=== PATIENT | male | born 1950 | race Caucasian/White ===

== ENCOUNTER 2022-05-12 10:39 | Inpatient (IN) | payer MEDICARE, MEDICAID ==
[~2022-05-12] VITALS: Ht 167.6 cm; Wt 107.5 kg
[2022-05-12] MEDS ORDERED: ATOR10TA84 PO (11:01)
[2022-05-12 12:47] LABS: BASOPHILS % (AUTO) 0.4 % (0.0-2.0); EOSINOPHILS % (AUTO) 1.5 % (1.0-6.0); HEMATOCRIT 36.7 % (41-53); HEMOGLOBIN 12.7 g/dL (13.5-17.5); LYMPHOCYTES # (AUTO) 1.3 K/uL (1.0-4.8); LYMPHOCYTES % (AUTO) 19.7 % (22.0-44.0); MEAN CORPUSCULAR HEMOGLOBIN 31.1 pg (26.0-34.0); MEAN CORPUSCULAR HGB CONC 34.7 G/dL (31.0-37.0); MEAN CORPUSCULAR VOLUME 90 fL (80-100); MONOCYTES # (AUTO) 0.9 K/uL (0.1-1.0); MONOCYTES % (AUTO) 12.9 % (2.0-9.0); NEUTROPHILS # (AUTO) 4.3 K/uL (1.8-7.7); NEUTROPHILS % (AUTO) 65.5 % (40.0-70.0); PLATELET COUNT (AUTO) 147 K/uL (150-450); RED BLOOD CELL COUNT(AUTO) 4.09 MIL/uL (4.50-5.90); RED CELL DISTRIBUTION WIDTH 13.8 % (11.5-14.5)
[2022-05-12 12:56] LABS: COVID AG,FIA SOURCE NASAL SWAB
[2022-05-12 12:58] LABS: ANION GAP 10 mmol/L (8-16); CALCIUM, TOTAL 8.6 mg/dL (8.8-10.5); CARBON DIOXIDE 26 mmol/L (22-29); CHLORIDE 99 mmol/L (98-107); CREATININE 0.96 mg/dL (0.60-1.30); GLUCOSE,RANDOM 109 mg/dL (70-110); POTASSIUM 3.5 mmol/L (3.5-5.1); SODIUM SERUM 135 mmol/L (136-145); UREA NITROGEN, BLOOD 13 mg/dL (7-18)
[2022-05-12 13:02] LABS: GLOMERULAR FILTR. RATE CALC > 60 mL/min (>60)
[2022-05-12 13:04] LABS: ALANINE AMINOTRANSFERASE 15 U/L (12-78); ALKALINE PHOSPHATASE 59 U/L (46-116); ASPARTATE AMINOTRANSFERASE 16 U/L (15-37); BILIRUBIN,TOTAL 0.9 mg/dL (0.1-1.0); C-REACTIVE PROTEIN QUANT 12.06 mg/dL (0.00-0.30)
[2022-05-12 13:28] LABS: ERYTHROCYTE SEDIMENTATION RATE 51 MM/HR (0-15)
[2022-05-12] MEDS ORDERED: VANCOMYCIN 1GM/WATER(PEG/NADA) 200 ML IV ONE (14:15)
[2022-05-12] MEDS ORDERED: FOLI0.4T14 PO (14:18)
[2022-05-12] MEDS ORDERED: ATOR20TA65 PO (14:18)
[2022-05-12] MEDS ORDERED: METO25 PO (14:18)
[2022-05-12] MEDS ORDERED: HYDR12.54 PO (14:18)
[2022-05-12] MEDS ORDERED: APIX5TAB PO (14:18)
[2022-05-12] MEDS ORDERED: FINA5TAB41 PO (14:18)
[2022-05-12] MEDS ORDERED: IBUP-2070 PO (14:18)
[2022-05-12] MEDS ORDERED: TERA10CA4 PO (14:18)
[2022-05-12] MEDS ORDERED: CLOB15CR41 TP (14:18)
[2022-05-12] MEDS ORDERED: BISACODYL 10 MG RECTAL RECTAL SUPPOSITORY PR PRN (18:00)
[2022-05-12] MEDS ORDERED: ALBUTEROL SULFATE 2.5 MG/0.5 ML NEB SOLUTION NEB PRN (18:00)
[2022-05-12] MEDS ORDERED: ONDANSETRON HCL 4 MG/2 ML VIAL IVP PRN (18:00)
[2022-05-12] MEDS ORDERED: IPRATROPIUM BROMIDE 0.5 MG/2.5 ML NEB SOLUTION NEB PRN (18:00)
[2022-05-12] MEDS: CefTRIAXone 1 GM/DEXTROSE 50 ML IV SCH (18:23)
[2022-05-12] MEDS: ACETAMINOPHEN 325 MG TABLET PO PRN (19:00)
[2022-05-12] MEDS: APIXABAN 5 MG TABLET PO SCH (21:19)
[2022-05-12] MEDS: METOPROLOL TARTRATE 25 MG TABLET PO SCH (21:19)
[2022-05-12] MEDS: ATORVASTATIN CALCIUM 20 MG TABLET PO SCH (21:20)
[2022-05-12] MEDS ORDERED: VANCOMYCIN HCL 500 MG in DEXTROSE 5%-WATER 100 ML IV ONE (22:00)
[2022-05-12 22:36] VITALS: BP 137/73
[2022-05-13 00:35] VITALS: BP 99/65
[2022-05-13 03:55] VITALS: BP 130/59
[2022-05-13] MEDS: ACETAMINOPHEN 325 MG TABLET PO PRN ×3 (03:59→18:11)
[2022-05-13 07:21] LABS: BASOPHILS % (AUTO) 0.7 % (0.0-2.0); EOSINOPHILS % (AUTO) 3.3 % (1.0-6.0); HEMATOCRIT 35.2 % (41-53); HEMOGLOBIN 12.3 g/dL (13.5-17.5); LYMPHOCYTES % (AUTO) 17.7 % (22.0-44.0); MEAN CORPUSCULAR HEMOGLOBIN 31.1 pg (26.0-34.0); MEAN CORPUSCULAR HGB CONC 34.9 G/dL (31.0-37.0); MEAN CORPUSCULAR VOLUME 89 fL (80-100); MONOCYTES # (AUTO) 0.6 K/uL (0.1-1.0); MONOCYTES % (AUTO) 11.8 % (2.0-9.0); NEUTROPHILS # (AUTO) 3.6 K/uL (1.8-7.7); NEUTROPHILS % (AUTO) 66.5 % (40.0-70.0); PLATELET COUNT (AUTO) 172 K/uL (150-450); RED BLOOD CELL COUNT(AUTO) 3.96 MIL/uL (4.50-5.90); RED CELL DISTRIBUTION WIDTH 13.9 % (11.5-14.5)
[2022-05-13 07:39] LABS: ALANINE AMINOTRANSFERASE 14 U/L (12-78); ALBUMIN 2.7 g/dL (3.4-5.0); ALKALINE PHOSPHATASE 56 U/L (46-116); ANION GAP 12 mmol/L (8-16); ASPARTATE AMINOTRANSFERASE 16 U/L (15-37); BILIRUBIN,TOTAL 0.7 mg/dL (0.1-1.0); CALCIUM, TOTAL 8.4 mg/dL (8.8-10.5); CARBON DIOXIDE 28 mmol/L (22-29); CHLORIDE 99 mmol/L (98-107); CREATININE 0.89 mg/dL (0.60-1.30); GLUCOSE,RANDOM 109 mg/dL (70-110); POTASSIUM 3.7 mmol/L (3.5-5.1); SODIUM SERUM 139 mmol/L (136-145); TOTAL PROTEIN, SERUM 6.4 g/dL (6.4-8.2); UREA NITROGEN, BLOOD 14 mg/dL (7-18)
[2022-05-13 07:42] VITALS: BP 132/77
[2022-05-13 07:43] LABS: GLOMERULAR FILTR. RATE CALC > 60 mL/min (>60)
[2022-05-13] MEDS: APIXABAN 5 MG TABLET PO SCH ×2 (08:56→20:15)
[2022-05-13] MEDS: METOPROLOL TARTRATE 25 MG TABLET PO SCH ×2 (08:56→20:15)
[2022-05-13] MEDS: FOLIC ACID 0.4 MG TABLET PO SCH (08:56)
[2022-05-13] MEDS: FINASTERIDE 5 MG TABLET PO SCH (08:56)
[2022-05-13] MEDS: VANCOMYCIN HCL 1.25 GM in DEXTROSE 5%-WATER 250 ML IV SCH ×2 (08:57→20:15)
[2022-05-13 10:55] VITALS: BP 114/75
[2022-05-13] MEDS: SILVER SULFADIAZINE 1% 25 GM CREAM TP SCH (14:13)
[2022-05-13] MEDS: NYSTATIN 30 GM CREAM TP SCH (14:13)
[2022-05-13 14:38] VITALS: BP 122/76
[2022-05-13] MEDS ORDERED: SODIUM CHLORIDE 0.9% 500 ML IV ONE (17:59)
[2022-05-13] MEDS: CefTRIAXone 1 GM/DEXTROSE 50 ML IV SCH (18:00)
[2022-05-13] MEDS: ATORVASTATIN CALCIUM 20 MG TABLET PO SCH (20:15)
[2022-05-13 20:37] VITALS: BP 133/76
[2022-05-14 00:11] VITALS: BP 124/72
[2022-05-14 04:47] VITALS: BP 129/74
[2022-05-14 06:11] LABS: ANION GAP 4 mmol/L (8-16); CARBON DIOXIDE 32 mmol/L (22-29); CHLORIDE 102 mmol/L (98-107); CREATININE 0.82 mg/dL (0.60-1.30); GLUCOSE,RANDOM 147 mg/dL (70-110); SODIUM SERUM 138 mmol/L (136-145); UREA NITROGEN, BLOOD 11 mg/dL (7-18)
[2022-05-14 06:19] LABS: GLOMERULAR FILTR. RATE CALC > 60 mL/min (>60)
[2022-05-14 06:37] LABS: VANCOMYCIN,RANDOM 12.6 mcg/mL (25.0-50.0)
[2022-05-14 07:17] VITALS: BP 125/73
[2022-05-14] MEDS: FINASTERIDE 5 MG TABLET PO SCH (08:30)
[2022-05-14] MEDS: METOPROLOL TARTRATE 25 MG TABLET PO SCH ×2 (08:30→20:56)
[2022-05-14] MEDS: SILVER SULFADIAZINE 1% 25 GM CREAM TP SCH (08:30)
[2022-05-14] MEDS: APIXABAN 5 MG TABLET PO SCH ×2 (08:30→20:56)
[2022-05-14] MEDS: NYSTATIN 30 GM CREAM TP SCH (08:30)
[2022-05-14] MEDS: FOLIC ACID 0.4 MG TABLET PO SCH (08:30)
[2022-05-14] MEDS: VANCOMYCIN HCL 1.25 GM in DEXTROSE 5%-WATER 250 ML IV SCH (08:34)
[2022-05-14 10:56] VITALS: BP 123/82
[2022-05-14] MEDS: ACETAMINOPHEN 325 MG TABLET PO PRN ×2 (12:16→16:30)
[2022-05-14] MEDS: PIPERACILLIN/TAZO 3.375 GM/D5W 50 ML IV SCH ×2 (15:25→20:56)
[2022-05-14 16:05] VITALS: BP 117/66
[2022-05-14] MEDS: VANCOMYCIN 1GM/WATER(PEG/NADA) 200 ML IV SCH (16:30)
[2022-05-14 20:04] VITALS: BP 127/84
[2022-05-14] MEDS: ATORVASTATIN CALCIUM 20 MG TABLET PO SCH (20:56)
[2022-05-15 00:10] VITALS: BP 111/56
[2022-05-15] MEDS: VANCOMYCIN 1GM/WATER(PEG/NADA) 200 ML IV SCH ×3 (00:47→16:00)
[2022-05-15] MEDS: PIPERACILLIN/TAZO 3.375 GM/D5W 50 ML IV SCH ×4 (03:02→20:31)
[2022-05-15] MEDS: ACETAMINOPHEN 325 MG TABLET PO PRN ×2 (03:04→16:36)
[2022-05-15 04:43] VITALS: BP 115/77
[2022-05-15 06:03] LABS: BASOPHILS % (AUTO) 1.1 % (0.0-2.0); HEMATOCRIT 39.2 % (41-53); HEMOGLOBIN 13.5 g/dL (13.5-17.5); LYMPHOCYTES # (AUTO) 1.1 K/uL (1.0-4.8); LYMPHOCYTES % (AUTO) 19.3 % (22.0-44.0); MEAN CORPUSCULAR HEMOGLOBIN 31.1 pg (26.0-34.0); MEAN CORPUSCULAR HGB CONC 34.3 G/dL (31.0-37.0); MEAN CORPUSCULAR VOLUME 91 fL (80-100); MONOCYTES # (AUTO) 0.6 K/uL (0.1-1.0); MONOCYTES % (AUTO) 9.8 % (2.0-9.0); NEUTROPHILS # (AUTO) 3.8 K/uL (1.8-7.7); NEUTROPHILS % (AUTO) 66.8 % (40.0-70.0); PLATELET COUNT (AUTO) 236 K/uL (150-450); RED BLOOD CELL COUNT(AUTO) 4.33 MIL/uL (4.50-5.90); RED CELL DISTRIBUTION WIDTH 13.6 % (11.5-14.5)
[2022-05-15 06:21] LABS: ALANINE AMINOTRANSFERASE 19 U/L (12-78); ALBUMIN 2.8 g/dL (3.4-5.0); ALKALINE PHOSPHATASE 68 U/L (46-116); ANION GAP 8 mmol/L (8-16); ASPARTATE AMINOTRANSFERASE 18 U/L (15-37); BILIRUBIN,TOTAL 0.6 mg/dL (0.1-1.0); CALCIUM, TOTAL 8.9 mg/dL (8.8-10.5); CARBON DIOXIDE 29 mmol/L (22-29); CHLORIDE 102 mmol/L (98-107); GLUCOSE,RANDOM 120 mg/dL (70-110); POTASSIUM 4.3 mmol/L (3.5-5.1); SODIUM SERUM 139 mmol/L (136-145); TOTAL PROTEIN, SERUM 7.1 g/dL (6.4-8.2); UREA NITROGEN, BLOOD 11 mg/dL (7-18)
[2022-05-15 06:23] LABS: GLOMERULAR FILTR. RATE CALC > 60 mL/min (>60)
[2022-05-15 07:25] VITALS: BP 137/68
[2022-05-15] MEDS: FOLIC ACID 0.4 MG TABLET PO SCH (08:28)
[2022-05-15] MEDS: METOPROLOL TARTRATE 25 MG TABLET PO SCH ×2 (08:28→20:31)
[2022-05-15] MEDS: APIXABAN 5 MG TABLET PO SCH ×2 (08:28→20:31)
[2022-05-15] MEDS: FINASTERIDE 5 MG TABLET PO SCH (08:28)
[2022-05-15] MEDS: NYSTATIN 30 GM CREAM TP SCH (08:29)
[2022-05-15] MEDS: SILVER SULFADIAZINE 1% 25 GM CREAM TP SCH (08:29)
[2022-05-15] MEDS: HYDROCODONE/ACETAMINOPHEN 5-325 MG TABLET PO PRN ×3 (09:36→18:24)
[2022-05-15 11:10] VITALS: BP 122/69
[2022-05-15 15:55] VITALS: BP 119/76
[2022-05-15 19:55] VITALS: BP 137/69
[2022-05-15] MEDS: ATORVASTATIN CALCIUM 20 MG TABLET PO SCH (20:31)
[2022-05-16 00:01] VITALS: BP 114/68
[2022-05-16] MEDS: VANCOMYCIN 1GM/WATER(PEG/NADA) 200 ML IV SCH ×3 (00:55→17:41)
[2022-05-16] MEDS: PIPERACILLIN/TAZO 3.375 GM/D5W 50 ML IV SCH ×4 (03:01→20:19)
[2022-05-16] MEDS: ACETAMINOPHEN 325 MG TABLET PO PRN (03:03)
[2022-05-16 04:35] VITALS: BP 110/76
[2022-05-16] MEDS: FINASTERIDE 5 MG TABLET PO SCH (08:15)
[2022-05-16] MEDS: APIXABAN 5 MG TABLET PO SCH ×2 (08:15→19:56)
[2022-05-16] MEDS: NYSTATIN 30 GM CREAM TP SCH (08:15)
[2022-05-16] MEDS: FOLIC ACID 0.4 MG TABLET PO SCH (08:15)
[2022-05-16] MEDS: METOPROLOL TARTRATE 25 MG TABLET PO SCH ×2 (08:15→19:56)
[2022-05-16] MEDS: SILVER SULFADIAZINE 1% 25 GM CREAM TP SCH (08:16)
[2022-05-16 08:20] VITALS: BP 114/78
[2022-05-16 09:57] LABS: VANCOMYCIN,RANDOM 16.1 mcg/mL (25.0-50.0)
[2022-05-16 10:03] LABS: ANION GAP 9 mmol/L (8-16); CARBON DIOXIDE 29 mmol/L (22-29); CHLORIDE 103 mmol/L (98-107); CREATININE 0.95 mg/dL (0.60-1.30); GLOMERULAR FILTR. RATE CALC > 60 mL/min (>60); GLUCOSE,RANDOM 155 mg/dL (70-110); SODIUM SERUM 141 mmol/L (136-145); UREA NITROGEN, BLOOD 14 mg/dL (7-18)
[2022-05-16 11:33] VITALS: BP 118/67
[2022-05-16 16:10] VITALS: BP 120/83
[2022-05-16] MEDS: HYDROCODONE/ACETAMINOPHEN 5-325 MG TABLET PO PRN (19:56)
[2022-05-16] MEDS: DOCUSATE SODIUM 100 MG CAPSULE PO PRN (19:56)
[2022-05-16] MEDS: ATORVASTATIN CALCIUM 20 MG TABLET PO SCH (19:56)
[2022-05-16 20:06] VITALS: BP 116/76
[2022-05-16] MEDS ORDERED: SODIUM CHLORIDE 0.9% 500 ML IV ONE (20:22)
[2022-05-17 00:12] VITALS: BP 107/63
[2022-05-17] MEDS: VANCOMYCIN 1GM/WATER(PEG/NADA) 200 ML IV SCH ×3 (00:53→17:32)
[2022-05-17] MEDS: ACETAMINOPHEN 325 MG TABLET PO PRN ×2 (00:59→05:43)
[2022-05-17] MEDS: PIPERACILLIN/TAZO 3.375 GM/D5W 50 ML IV SCH ×4 (02:49→20:23)
[2022-05-17 04:53] VITALS: BP 106/75
[2022-05-17 07:20] LABS: ANION GAP 4 mmol/L (8-16); CALCIUM, TOTAL 8.9 mg/dL (8.8-10.5); CARBON DIOXIDE 28 mmol/L (22-29); CHLORIDE 104 mmol/L (98-107); CREATININE 0.84 mg/dL (0.60-1.30); GLUCOSE,RANDOM 96 mg/dL (70-110); POTASSIUM 4.1 mmol/L (3.5-5.1); SODIUM SERUM 136 mmol/L (136-145); UREA NITROGEN, BLOOD 14 mg/dL (7-18)
[2022-05-17 07:21] LABS: GLOMERULAR FILTR. RATE CALC > 60 mL/min (>60)
[2022-05-17 07:42] LABS: C-REACTIVE PROTEIN QUANT 2.51 mg/dL (0.00-0.30); VANCOMYCIN,RANDOM 26.3 mcg/mL (25.0-50.0)
[2022-05-17 07:54] VITALS: BP 127/60
[2022-05-17] MEDS: FOLIC ACID 0.4 MG TABLET PO SCH (08:15)
[2022-05-17] MEDS: METOPROLOL TARTRATE 25 MG TABLET PO SCH ×2 (08:15→20:24)
[2022-05-17] MEDS: DOCUSATE SODIUM 100 MG CAPSULE PO PRN (08:15)
[2022-05-17] MEDS: FINASTERIDE 5 MG TABLET PO SCH (08:15)
[2022-05-17] MEDS: APIXABAN 5 MG TABLET PO SCH ×2 (08:15→20:24)
[2022-05-17] MEDS: HYDROCODONE/ACETAMINOPHEN 5-325 MG TABLET PO PRN ×2 (08:15→20:23)
[2022-05-17] MEDS: SILVER SULFADIAZINE 1% 25 GM CREAM TP SCH (08:16)
[2022-05-17] MEDS: NYSTATIN 30 GM CREAM TP SCH (08:16)
[2022-05-17 11:14] VITALS: BP 110/74
[2022-05-17 16:02] VITALS: BP 118/74
[2022-05-17 20:00] VITALS: BP 116/68
[2022-05-17] MEDS: ATORVASTATIN CALCIUM 20 MG TABLET PO SCH (20:24)
[2022-05-18] VITALS: BP 108/49
[2022-05-18] MEDS: VANCOMYCIN 1GM/WATER(PEG/NADA) 200 ML IV SCH ×4 (00:13→23:56)
[2022-05-18] MEDS: PIPERACILLIN/TAZO 3.375 GM/D5W 50 ML IV SCH ×4 (02:36→21:05)
[2022-05-18 04:00] VITALS: BP 122/81
[2022-05-18 06:40] LABS: ANION GAP 5 mmol/L (8-16); CARBON DIOXIDE 30 mmol/L (22-29); CHLORIDE 104 mmol/L (98-107); CREATININE 0.87 mg/dL (0.60-1.30); GLUCOSE,RANDOM 97 mg/dL (70-110); POTASSIUM 4.2 mmol/L (3.5-5.1); SODIUM SERUM 139 mmol/L (136-145); UREA NITROGEN, BLOOD 14 mg/dL (7-18)
[2022-05-18 06:43] LABS: GLOMERULAR FILTR. RATE CALC > 60 mL/min (>60)
[2022-05-18 07:00] LABS: C-REACTIVE PROTEIN QUANT 1.76 mg/dL (0.00-0.30)
[2022-05-18 08:35] VITALS: BP 135/83
[2022-05-18] MEDS: FOLIC ACID 0.4 MG TABLET PO SCH (08:35)
[2022-05-18] MEDS: APIXABAN 5 MG TABLET PO SCH ×2 (08:36→21:06)
[2022-05-18] MEDS: FINASTERIDE 5 MG TABLET PO SCH (08:36)
[2022-05-18] MEDS: METOPROLOL TARTRATE 25 MG TABLET PO SCH ×2 (08:36→21:00)
[2022-05-18] MEDS: HYDROCODONE/ACETAMINOPHEN 5-325 MG TABLET PO PRN (08:40)
[2022-05-18] MEDS ORDERED: SODIUM CHLORIDE 0.9% 500 ML IV ONE (08:50)
[2022-05-18 09:47] LABS: BASOPHILS % (AUTO) 0.8 % (0.0-2.0); HEMATOCRIT 37.2 % (41-53); HEMOGLOBIN 12.6 g/dL (13.5-17.5); LYMPHOCYTES # (AUTO) 1.4 K/uL (1.0-4.8); LYMPHOCYTES % (AUTO) 32.3 % (22.0-44.0); MEAN CORPUSCULAR HEMOGLOBIN 30.9 pg (26.0-34.0); MEAN CORPUSCULAR HGB CONC 33.9 G/dL (31.0-37.0); MEAN CORPUSCULAR VOLUME 91 fL (80-100); MONOCYTES # (AUTO) 0.5 K/uL (0.1-1.0); MONOCYTES % (AUTO) 10.7 % (2.0-9.0); NEUTROPHILS # (AUTO) 2.3 K/uL (1.8-7.7); NEUTROPHILS % (AUTO) 52.2 % (40.0-70.0); PLATELET COUNT (AUTO) 317 K/uL (150-450); RED BLOOD CELL COUNT(AUTO) 4.08 MIL/uL (4.50-5.90)
[2022-05-18] MEDS: SILVER SULFADIAZINE 1% 25 GM CREAM TP SCH (10:06)
[2022-05-18] MEDS: NYSTATIN 30 GM CREAM TP SCH (10:07)
[2022-05-18 11:28] VITALS: BP 119/59
[2022-05-18 15:25] VITALS: BP 116/78
[2022-05-18 20:45] VITALS: BP 123/84
[2022-05-18] MEDS: ATORVASTATIN CALCIUM 20 MG TABLET PO SCH (21:07)
[2022-05-19 00:06] VITALS: BP 128/62
[2022-05-19] MEDS: PIPERACILLIN/TAZO 3.375 GM/D5W 50 ML IV SCH ×4 (02:46→20:34)
[2022-05-19 04:43] VITALS: BP 112/74
[2022-05-19 07:42] LABS: BASOPHILS % (AUTO) 1.3 % (0.0-2.0); EOSINOPHILS % (AUTO) 3.8 % (1.0-6.0); HEMATOCRIT 36.4 % (41-53); HEMOGLOBIN 12.6 g/dL (13.5-17.5); LYMPHOCYTES # (AUTO) 1.1 K/uL (1.0-4.8); LYMPHOCYTES % (AUTO) 26.9 % (22.0-44.0); MEAN CORPUSCULAR HEMOGLOBIN 31.1 pg (26.0-34.0); MEAN CORPUSCULAR HGB CONC 34.5 G/dL (31.0-37.0); MEAN CORPUSCULAR VOLUME 90 fL (80-100); MONOCYTES # (AUTO) 0.4 K/uL (0.1-1.0); NEUTROPHILS # (AUTO) 2.5 K/uL (1.8-7.7); PLATELET COUNT (AUTO) 312 K/uL (150-450); RED BLOOD CELL COUNT(AUTO) 4.04 MIL/uL (4.50-5.90)
[2022-05-19 07:55] LABS: C-REACTIVE PROTEIN QUANT 1.18 mg/dL (0.00-0.30)
[2022-05-19 08:09] LABS: ANION GAP 6 mmol/L (8-16); CALCIUM, TOTAL 9.1 mg/dL (8.8-10.5); CARBON DIOXIDE 29 mmol/L (22-29); CHLORIDE 104 mmol/L (98-107); CREATININE 0.88 mg/dL (0.60-1.30); GLUCOSE,RANDOM 104 mg/dL (70-110); POTASSIUM 4.1 mmol/L (3.5-5.1); SODIUM SERUM 139 mmol/L (136-145); UREA NITROGEN, BLOOD 16 mg/dL (7-18)
[2022-05-19 08:10] LABS: GLOMERULAR FILTR. RATE CALC > 60 mL/min (>60)
[2022-05-19 08:15] VITALS: BP 109/65
[2022-05-19] MEDS: APIXABAN 5 MG TABLET PO SCH ×2 (08:19→20:34)
[2022-05-19] MEDS: FOLIC ACID 0.4 MG TABLET PO SCH (08:19)
[2022-05-19] MEDS: FINASTERIDE 5 MG TABLET PO SCH (08:19)
[2022-05-19] MEDS: HYDROCODONE/ACETAMINOPHEN 5-325 MG TABLET PO PRN (08:23)
[2022-05-19] MEDS: METOPROLOL TARTRATE 25 MG TABLET PO SCH ×2 (09:41→20:34)
[2022-05-19] MEDS: VANCOMYCIN 1GM/WATER(PEG/NADA) 200 ML IV SCH ×2 (10:34→17:00)
[2022-05-19 12:40] VITALS: BP 113/66
[2022-05-19 16:44] VITALS: BP 115/84
[2022-05-19] MEDS: SILVER SULFADIAZINE 1% 25 GM CREAM TP SCH (16:59)
[2022-05-19] MEDS: NYSTATIN 30 GM CREAM TP SCH (16:59)
[2022-05-19 19:45] VITALS: BP 126/64
[2022-05-19] MEDS: ATORVASTATIN CALCIUM 20 MG TABLET PO SCH (20:34)
[2022-05-20] VITALS (7 sets, daily range): BP systolic 102–152; BP diastolic 50–88
[2022-05-20] MEDS: VANCOMYCIN 1GM/WATER(PEG/NADA) 200 ML IV SCH ×3 (00:13→20:40)
[2022-05-20] MEDS: PIPERACILLIN/TAZO 3.375 GM/D5W 50 ML IV SCH ×4 (02:37→20:03)
[2022-05-20 06:51] LABS: BASOPHILS % (AUTO) 1.9 % (0.0-2.0); EOSINOPHILS % (AUTO) 3.6 % (1.0-6.0); HEMATOCRIT 36.9 % (41-53); HEMOGLOBIN 12.5 g/dL (13.5-17.5); LYMPHOCYTES # (AUTO) 1.3 K/uL (1.0-4.8); MEAN CORPUSCULAR HEMOGLOBIN 30.7 pg (26.0-34.0); MEAN CORPUSCULAR HGB CONC 33.8 G/dL (31.0-37.0); MEAN CORPUSCULAR VOLUME 91 fL (80-100); MONOCYTES # (AUTO) 0.5 K/uL (0.1-1.0); NEUTROPHILS # (AUTO) 2.5 K/uL (1.8-7.7); NEUTROPHILS % (AUTO) 55.5 % (40.0-70.0); PLATELET COUNT (AUTO) 344 K/uL (150-450); RED BLOOD CELL COUNT(AUTO) 4.06 MIL/uL (4.50-5.90); RED CELL DISTRIBUTION WIDTH 13.9 % (11.5-14.5)
[2022-05-20 07:09] LABS: ANION GAP 4 mmol/L (8-16); CALCIUM, TOTAL 8.8 mg/dL (8.8-10.5); CARBON DIOXIDE 30 mmol/L (22-29); CHLORIDE 105 mmol/L (98-107); CREATININE 0.86 mg/dL (0.60-1.30); GLOMERULAR FILTR. RATE CALC > 60 mL/min (>60); GLUCOSE,RANDOM 95 mg/dL (70-110); POTASSIUM 4.1 mmol/L (3.5-5.1); SODIUM SERUM 139 mmol/L (136-145); UREA NITROGEN, BLOOD 18 mg/dL (7-18)
[2022-05-20 07:40] LABS: VANCOMYCIN,RANDOM 28.3 mcg/mL (25.0-50.0)
[2022-05-20] MEDS: APIXABAN 5 MG TABLET PO SCH ×2 (08:45→20:04)
[2022-05-20] MEDS: FOLIC ACID 0.4 MG TABLET PO SCH (08:45)
[2022-05-20] MEDS: FINASTERIDE 5 MG TABLET PO SCH (08:46)
[2022-05-20] MEDS: METOPROLOL TARTRATE 25 MG TABLET PO SCH ×2 (08:46→20:04)
[2022-05-20] MEDS: NYSTATIN 30 GM CREAM TP SCH (09:21)
[2022-05-20] MEDS: SILVER SULFADIAZINE 1% 25 GM CREAM TP SCH (09:21)
[2022-05-20] MEDS: ATORVASTATIN CALCIUM 20 MG TABLET PO SCH (20:04)
[2022-05-21] MEDS: PIPERACILLIN/TAZO 3.375 GM/D5W 50 ML IV SCH ×4 (02:48→19:57)
[2022-05-21 04:15] VITALS: BP 108/59
[2022-05-21] MEDS: ACETAMINOPHEN 325 MG TABLET PO PRN (05:23)
[2022-05-21 07:14] LABS: ALANINE AMINOTRANSFERASE 22 U/L (12-78); ALBUMIN 2.8 g/dL (3.4-5.0); ALKALINE PHOSPHATASE 61 U/L (46-116); ANION GAP 4 mmol/L (8-16); ASPARTATE AMINOTRANSFERASE 21 U/L (15-37); BILIRUBIN,TOTAL 0.5 mg/dL (0.1-1.0); C-REACTIVE PROTEIN QUANT 0.65 mg/dL (0.00-0.30); CALCIUM, TOTAL 8.7 mg/dL (8.8-10.5); CARBON DIOXIDE 29 mmol/L (22-29); CHLORIDE 104 mmol/L (98-107); CREATININE 0.97 mg/dL (0.60-1.30); GLUCOSE,RANDOM 97 mg/dL (70-110); POTASSIUM 4.1 mmol/L (3.5-5.1); SODIUM SERUM 137 mmol/L (136-145); TOTAL PROTEIN, SERUM 6.7 g/dL (6.4-8.2); UREA NITROGEN, BLOOD 17 mg/dL (7-18)
[2022-05-21 07:18] VITALS: BP 109/72
[2022-05-21 07:18] LABS: GLOMERULAR FILTR. RATE CALC > 60 mL/min (>60)
[2022-05-21] MEDS: METOPROLOL TARTRATE 25 MG TABLET PO SCH ×2 (08:18→20:36)
[2022-05-21] MEDS: FOLIC ACID 0.4 MG TABLET PO SCH (08:18)
[2022-05-21] MEDS: FINASTERIDE 5 MG TABLET PO SCH (08:18)
[2022-05-21] MEDS: APIXABAN 5 MG TABLET PO SCH ×2 (08:19→20:36)
[2022-05-21] MEDS: VANCOMYCIN 1GM/WATER(PEG/NADA) 200 ML IV SCH ×2 (09:01→20:36)
[2022-05-21] MEDS: SILVER SULFADIAZINE 1% 25 GM CREAM TP SCH (09:02)
[2022-05-21] MEDS: NYSTATIN 30 GM CREAM TP SCH (09:02)
[2022-05-21 11:01] VITALS: BP 119/78
[2022-05-21 15:48] VITALS: BP 142/94
[2022-05-21 19:28] VITALS: BP 134/76
[2022-05-21] MEDS: ATORVASTATIN CALCIUM 20 MG TABLET PO SCH (20:36)
[2022-05-21 23:40] VITALS: BP 120/83
[2022-05-22] MEDS: PIPERACILLIN/TAZO 3.375 GM/D5W 50 ML IV SCH ×4 (02:05→19:55)
[2022-05-22 05:36] VITALS: BP 98/68
[2022-05-22 06:49] LABS: ANION GAP 5 mmol/L (8-16); CALCIUM, TOTAL 8.8 mg/dL (8.8-10.5); CARBON DIOXIDE 28 mmol/L (22-29); CHLORIDE 106 mmol/L (98-107); CREATININE 0.93 mg/dL (0.60-1.30); GLUCOSE,RANDOM 99 mg/dL (70-110); POTASSIUM 4.1 mmol/L (3.5-5.1); SODIUM SERUM 139 mmol/L (136-145); UREA NITROGEN, BLOOD 17 mg/dL (7-18); VANCOMYCIN,RANDOM 15.5 mcg/mL (25.0-50.0)
[2022-05-22 06:51] LABS: GLOMERULAR FILTR. RATE CALC > 60 mL/min (>60)
[2022-05-22 07:08] VITALS: BP 106/67
[2022-05-22] MEDS: METOPROLOL TARTRATE 25 MG TABLET PO SCH ×2 (08:22→20:15)
[2022-05-22] MEDS: FINASTERIDE 5 MG TABLET PO SCH (08:22)
[2022-05-22] MEDS: VANCOMYCIN 1GM/WATER(PEG/NADA) 200 ML IV SCH ×2 (08:22→19:55)
[2022-05-22] MEDS: APIXABAN 5 MG TABLET PO SCH ×2 (08:23→20:15)
[2022-05-22] MEDS: FOLIC ACID 0.4 MG TABLET PO SCH (08:23)
[2022-05-22] MEDS: ACETAMINOPHEN 325 MG TABLET PO PRN (08:23)
[2022-05-22] MEDS: SILVER SULFADIAZINE 1% 25 GM CREAM TP SCH (08:24)
[2022-05-22] MEDS: NYSTATIN 30 GM CREAM TP SCH (08:24)
[2022-05-22 10:50] VITALS: BP 102/65
[2022-05-22 14:47] VITALS: BP 121/64
[2022-05-22 20:01] VITALS: BP 113/78
[2022-05-22] MEDS: ATORVASTATIN CALCIUM 20 MG TABLET PO SCH (20:15)
[2022-05-22 23:57] VITALS: BP 124/83
[2022-05-23] MEDS: PIPERACILLIN/TAZO 3.375 GM/D5W 50 ML IV SCH ×2 (01:50→08:04)
[2022-05-23 04:27] VITALS: BP 119/64
[2022-05-23 06:19] LABS: ANION GAP 7 mmol/L (8-16); CALCIUM, TOTAL 9.2 mg/dL (8.8-10.5); CARBON DIOXIDE 28 mmol/L (22-29); CHLORIDE 105 mmol/L (98-107); CREATININE 0.94 mg/dL (0.60-1.30); GLUCOSE,RANDOM 96 mg/dL (70-110); SODIUM SERUM 140 mmol/L (136-145); UREA NITROGEN, BLOOD 18 mg/dL (7-18)
[2022-05-23 06:20] LABS: GLOMERULAR FILTR. RATE CALC > 60 mL/min (>60)
[2022-05-23 06:21] LABS: BASOPHILS % (AUTO) 1.8 % (0.0-2.0); EOSINOPHILS % (AUTO) 2.9 % (1.0-6.0); HEMATOCRIT 37.7 % (41-53); HEMOGLOBIN 13.1 g/dL (13.5-17.5); LYMPHOCYTES # (AUTO) 1.6 K/uL (1.0-4.8); MEAN CORPUSCULAR HEMOGLOBIN 31.5 pg (26.0-34.0); MEAN CORPUSCULAR HGB CONC 34.8 G/dL (31.0-37.0); MEAN CORPUSCULAR VOLUME 90 fL (80-100); MONOCYTES # (AUTO) 0.5 K/uL (0.1-1.0); MONOCYTES % (AUTO) 10.8 % (2.0-9.0); NEUTROPHILS # (AUTO) 2.6 K/uL (1.8-7.7); NEUTROPHILS % (AUTO) 52.5 % (40.0-70.0); PLATELET COUNT (AUTO) 397 K/uL (150-450); RED BLOOD CELL COUNT(AUTO) 4.17 MIL/uL (4.50-5.90); RED CELL DISTRIBUTION WIDTH 13.7 % (11.5-14.5)
[2022-05-23] MEDS: VANCOMYCIN 1GM/WATER(PEG/NADA) 200 ML IV SCH (08:03)
[2022-05-23] MEDS: FOLIC ACID 0.4 MG TABLET PO SCH (08:07)
[2022-05-23] MEDS: APIXABAN 5 MG TABLET PO SCH (08:07)
[2022-05-23] MEDS: METOPROLOL TARTRATE 25 MG TABLET PO SCH (08:07)
[2022-05-23] MEDS: FINASTERIDE 5 MG TABLET PO SCH (08:07)
[2022-05-23] MEDS: SILVER SULFADIAZINE 1% 25 GM CREAM TP SCH (08:08)
[2022-05-23] MEDS: NYSTATIN 30 GM CREAM TP SCH (08:08)
[2022-05-23 08:11] VITALS: BP 132/85
[2022-05-23] MEDS ORDERED: DIGOXIN 250 MCG/ML 2 ML AMP IVP ONE (10:15)
[2022-05-23 11:20] VITALS: BP 132/73
[2022-05-23] MEDS ORDERED: AMOX1TAB16 PO (12:45)
[2022-05-23] MEDS ORDERED: DOXY-354 PO (12:45)
== END 2022-05-23 14:15 | disposition home or self-care (01) | DRG 603 ==
LOC: EMS 10:43 → 5N 20:44
PROVIDERS: ADMIT Internal Medicine; ATTEND Internal Medicine
DX: L03.115 Cellulitis of right lower limb (principal); Z20.822 Contact with and (suspected) exposure to COVID-19; D72.819 Decreased white blood cell count, unspecified; E78.00 Pure hypercholesterolemia, unspecified; I11.9 Hypertensive heart disease without heart failure; N40.0 Benign prostatic hyperplasia without lower urinary tract symptoms; I48.91 Unspecified atrial fibrillation
CPT/HCPCS: 73718; 80048; 80053; 80202; 84145; 85025; 85379; 85651; 86140; 87040; 93005; 93971; 99285; J0696; J1160; J2543; J3370; J7040; J7060; Q9967